=== PATIENT | male | born 1960 | race Caucasian/White ===

== ENCOUNTER 2020-03-24 16:42 | Emergency (ER) | payer MEDICAID ==
[~2020-03-24] VITALS: Ht 177.8 cm; Wt 70.8 kg
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
--- NOTE | 2020-03-24 17:20 | NUR ---
SEEN AND EXAMINED BY .
[2020-03-24] MEDS ORDERED: TDAP [DIPH/PERTUSSIS/TET] 0.5 ML VIAL IM ONE ×2 (17:24→17:30)
[2020-03-24] MEDS ORDERED: ACETAMINOPHEN 325 MG TABLET ONE (17:24)
[2020-03-24] MEDS ORDERED: ACETAMINOPHEN 325 MG TABLET PO ONE (17:30)
--- NOTE | 2020-03-24 17:30 | NUR ---
DOOR CLOSER AT BEDSIDE FOR XRAY.
[2020-03-24] MEDS ORDERED: CEPHALEXIN MONOHYDRATE 500 MG CAPSULE PO ONE ×2 (19:00→19:41)
[2020-03-24 20:27] VITALS: BP 146/90
--- NOTE | 2020-03-24 20:27 | NUR ---
Patient discharged to home in stable condition. Written and verbal after care instructions given. Patient verbalizes understanding of instruction.
== END 2020-03-24 20:27 | disposition home or self-care (01) ==
LOC: EDBD 16:46 → ER 16:46
DX: S60.551A Superficial foreign body of right hand, initial encounter (principal); J44.9 Chronic obstructive pulmonary disease, unspecified; Z90.49 Acquired absence of other specified parts of digestive tract; Z88.5 Allergy status to narcotic agent; W45.8XXA Other foreign body or object entering through skin, initial encounter; Y93.89 Activity, other specified; Y92.89 Other specified places as the place of occurrence of the external cause; Y99.8 Other external cause status
CPT/HCPCS: 73130-TC; 90715

== ENCOUNTER 2021-01-20 10:24 | Emergency (ER) | payer MEDICAID ==
[~2021-01-20] VITALS: Ht 177.8 cm; Wt 86.2 kg
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
--- NOTE | 2021-01-20 12:09 | NUR ---
PROVIDED W MEAL TRAY. TOLERATED WELL.
--- NOTE | 2021-01-20 12:28 | NUR ---
TRINY OCONNOR AT BEDSIDE
--- NOTE | 2021-01-20 12:36 | NUR ---
PATIENT WOULD LIKE TO BE PLACED IN A ALF, SW WILL WORK ON IT.
--- NOTE | 2021-01-20 14:40 | NUR ---
PROVIDED W PROPER CLOTHING.
--- NOTE | 2021-01-20 14:48 | NUR ---
Patient given written and verbal discharge instructions. Patient verbalizes understanding of instructions. Patient is ambulatory with steady gait. Refuses offer of detention placement. Patient given list of available shelters in surrounding area. Name band removed. In proper clothing upon discharge. All belongings returned to patient
[2021-01-20 14:52] VITALS: BP 131/65
== END 2021-01-20 14:52 | disposition home or self-care (01) ==
LOC: ER 10:26
DX: T69.9XXA Effect of reduced temperature, unspecified, initial encounter (principal); J00 Acute nasopharyngitis [common cold]; J44.9 Chronic obstructive pulmonary disease, unspecified; Z59.0 Homelessness; Z88.5 Allergy status to narcotic agent